=== PATIENT | female | born 1985 | race Hispanic/Latino ===

== ENCOUNTER 2018-07-03 04:45 | Emergency (ER) | payer OTHER, SELFPAY ==
[2018-07-03] MEDS ORDERED: Acetaminophen 325 MG TAB ONE (05:11)
[2018-07-03] MEDS ORDERED: Morphine 4 MG/ML VIAL ONE (05:36)
[2018-07-03 05:49] LABS: #Eosinphils 0.1 thou/uL (0.0-0.7); #Monocytes 0.8 thou/uL (0.11-0.59); %Basophils 0.2 % (0.0-1.0); %Eosinophils 0.4 % (0.0-10.0); %Lymphocytes 6.6 % (21.0-51.0); %Monocytes 5.4 % (0.0-10.0); %Neutrophils 87.4 % (42.0-75.0); Hemoglobin 10.6 g/dL (12.0-16.0); Mean Corpuscular Hemoglobin 31.3 pg (27.0-31.0); Mean Corpuscular Volume 94.8 fL (78.0-98.0); Mean Platelet Volume 7.6 fL (7.4-10.4); Platelet Count 327 thou/uL (130-400); RBC Distribution Width 11.7 % (11.5-14.5); Red Blood Cell (RBC) Count 3.39 mill/uL (4.20-5.40); White Blood Cell (WBC) Count 14.8 thou/uL (4.8-10.8)
[2018-07-03 06:07] LABS: BHCG - Serum Negative (NEGATIVE); Pregs Control Background? CLEAR/WHITE (CLR/WHITE); Pregs Control Bar Appear? YES (CONTROL BAR)
[2018-07-03 06:13] LABS: ALT (SGPT) 9 U/L (8-55); AST (SGOT) 11 U/L (5-34); Albumin 3.8 g/dL (3.5-5.0); Alkaline Phosphatase 65 U/L (40-150); Anion Gap 11 mmol/L (10-20); BUN (Urea Nitrogen) 9 mg/dL (7.0-18.7); Bilirubin, Total 0.5 mg/dL (0.2-1.2); Calc. Creatinine Clearance 0 mL/min (70-130); Calcium 8.8 mg/dL (7.8-10.44); Carbon Dioxide 24 mmol/L (22-29); Chloride 107 mmol/L (98-107); Estimated GFR-MDRD Greater than 90; Globulin 3.1 g/dL (2.4-3.5); Glucose 120 mg/dL (70-105); Lipase 9 U/L (8-78); Potassium 3.4 mmol/L (3.5-5.1); Protein, Total 6.9 g/dL (6.0-8.3); Sodium 139 mmol/L (136-145)
[2018-07-03 06:30] LABS: CKMB 0.2 ng/mL (0-6.6); Troponin I Less than 0.010 ng/mL (< 0.028)
[2018-07-03] MEDS ORDERED: cefTRIAXone\\ROCEPHIN 1 GM VIAL ONE (07:02)
[2018-07-03 07:07] LABS: Bilirubin Negative (Negative); Blood, Urine Trace (Negative); Clarity CLEAR (Clear); Glucose, Urine (Dipstick) Negative (Negative); Leukocyte Negative (Negative); Nitrite Negative (Negative); Protein, Urine (Dipstick) Negative (Neg-Trace); Specific Gravity, Urine 1.026 (1.002-1.036)
[2018-07-03 07:10] LABS: Bacteria/HPF 1+ HPF (None Seen); Hyaline Casts/LPF 0-3 HYALINE CAST LPF (0-3 Hyaline); Pathc Cast-AUWi Flag 0.14 (0-2.49); RBC/HPF 0-3 HPF (0-3); Squamous Epithelial 0-3 HPF (0-3); WBC/HPF 0-3 HPF (0-3)
--- NOTE | 2018-07-03 08:49 | RAD ---
PORTABLE CHEST 1 VIEW: Date: 07/03/18 Time: 0420 hours HISTORY: Cough. FINDINGS: The heart size is normal. The lungs are expanded with mild infiltrate in the left lung base. No pneum othorax or pleural effusions are seen. IMPRESSION: Left basilar pneumonia. POS: [facility]
--- NOTE | 2018-07-03 10:45 | CT ---
PRELIMINARY REPORT/[facility]/EMERGENTY AFTER-HOURS PROCEDURE CT Abdomen and Pelvis With Intravenous Contrast EXAM DATE/TIME: 07/03/2018 6:18 AM CLINICAL HISTORY: 32 years old, female; Pain; Abdominal pain; Periumbilical; Patient HX: Er 1; Periumbilical pain; F32 presents to the ed due to nonproductive cough and congestion for the past 3 days. PT reports having t max of 102 last night and reports abd pain. TECHNIQUE: Axial computed tomography images of the abdomen and pelvis with intravenous contrast. Coronal reformatted images were created and reviewed. COMPARISON: No relevant prior studies available. FINDINGS: Lower thorax: There is consolidation at the LEFT lung base compatible pneumonia in the appropriate cl inical setting. ABDOMEN: Liver: There are no focal liver lesions identified. Gallbladder and bile ducts: The gallbladder is normal. There is no evidence of biliary ductal dilatio n. Pancreas: The pancreas appears normal. No ductal dilatation. Spleen: The spleen is normal. Adrenals: The adrenal glands are normal. Kidneys and ureters: The kidneys appear normal. No hydronephrosis. Stomach and bowel: The stomach is normal. The colon is normal. Appendix: A normal appendix is identified. PELVIS: Bladder: The bladder is normal. Reproductive: The uterus is normal. ABDOMEN and PELVIS: Intraperitoneal space: Normal. No free air. No significant fluid collection. Bones/joints: No acute fracture. No dislocation. Soft tissues: Unremarkable. Vasculature: Normal. No abdominal aortic aneurysm. Lymph nodes: Normal. No enlarged lymph nodes. IMPRESSION: There is consolidation at the LEFT lung base compatible pneumonia in the appropriate clinical setting . Thank you for allowing us to participate in the care of your patient. Dictated and Authenticated by: Eleazar Ocampo MD 07/03/2018 6:50 AM Central Time ([place] & [place]) FINAL REPORT CT ABDOMEN AND PELVIS WITH IV CONTRAST: Date: 07/03/18 FINDINGS/IMPRESSION: I agree with the preliminary report given by Alexandre. POS: [facility]
[2018-07-03] MEDS ORDERED: ISOVUE-370 76%-LOCM 1 ML ONE (12:52)
== END 2018-07-03 08:33 | disposition home or self-care (01) ==
LOC: ERS 04:45
DX: J18.9 Pneumonia, unspecified organism (principal); F17.210 Nicotine dependence, cigarettes, uncomplicated
CPT/HCPCS: 71045; 74177; 80053; 81003; 81015; 82553; 83690; 84484; 84703; 85025; 87040; 87077; 87086; 87186; 87804; 96361; 96365; 96375; J0696; J2270

== ENCOUNTER 2019-03-06 07:18 | Emergency (ER) | payer SELFPAY ==
[2019-03-06] MEDS ORDERED: cefTRIAXone\\ROCEPHIN 1 GM VIAL ONE (07:58)
[2019-03-06] MEDS ORDERED: Lidocaine 1% PF 5 ML VIAL ONE (07:58)
[2019-03-06] MEDS ORDERED: Dexamethasone 10 MG/ML VIAL ONE ×2 (07:58→08:22)
== END 2019-03-06 08:46 | disposition home or self-care (01) ==
LOC: ERS 07:18
DX: R50.9 Fever, unspecified (principal); F17.210 Nicotine dependence, cigarettes, uncomplicated
CPT/HCPCS: 87081; 87430; 96372; 99283; J0696; J1100; J2001

== ENCOUNTER 2019-09-29 18:03 | Emergency (ER) | payer SELFPAY ==
[2019-09-29] MEDS ORDERED: Acetaminophen 500 MG TAB ONE (19:52)
[2019-09-29] MEDS ORDERED: Ondansetron ODT 4 MG TAB ONE (19:52)
[2019-09-29] MEDS ORDERED: Ibuprofen 200 MG TAB ONE (20:14)
== END 2019-09-29 20:30 | disposition home or self-care (01) ==
LOC: ERS 18:03
DX: J11.1 Influenza due to unidentified influenza virus with other respiratory manifestations (principal); F17.210 Nicotine dependence, cigarettes, uncomplicated; Z79.899 Other long term (current) drug therapy
CPT/HCPCS: 99283; Q0162